=== PATIENT | female | born 1980 | race Two or more races ===

== ENCOUNTER 2023-11-05 21:56 | Emergency (ER) | payer MEDICAID | END 2023-11-05 22:45 | disposition home or self-care (01) | LOC: JD.ED 21:56 | DX: R20.3 Hyperesthesia (principal); Z79.899 Other long term (current) drug therapy; Z90.49 Acquired absence of other specified parts of digestive tract | CPT/HCPCS: 99283 ==

== ENCOUNTER 2023-12-19 09:03 | Day surgery (SDC) | payer MEDICAID ==
[~2023-12-19 09:03] MED LIST: Sodium Chloride 0.9% 10 ML Syringe FLUSH PRN; Sodium Chloride 0.9% 10 ML Syringe FLUSH SCH
[2023-12-19] MEDS: Lactated Ringers 1,000 ML IV SCH (09:20)
[2023-12-19] MEDS ORDERED: Propofol 200 MG/20 ML SDV ONE (09:37)
[2023-12-19] MEDS ORDERED: Midazolam 1 MG/ML 2 ML SDV ONE (09:38)
[2023-12-19] MEDS ORDERED: Midazolam Oral Soln 10 MG/5 ML Oral Syringe ONE (09:38)
== END 2023-12-19 11:30 | disposition home or self-care (01) ==
LOC: JD.SDS 09:03
PROVIDERS: ATTEND Student in an Organized Health Care Education/Training Program
DX: K29.50 Unspecified chronic gastritis without bleeding (principal); K20.0 Eosinophilic esophagitis; K21.9 Gastro-esophageal reflux disease without esophagitis; K44.9 Diaphragmatic hernia without obstruction or gangrene; J45.40 Moderate persistent asthma, uncomplicated; F41.9 Anxiety disorder, unspecified; F32.A Depression, unspecified; F17.210 Nicotine dependence, cigarettes, uncomplicated; Z79.899 Other long term (current) drug therapy
CPT/HCPCS: 43239; J2250; J2704; J7120; 00731; A9270-GY